=== PATIENT | male | born 2000 | race Caucasian/White ===

== ENCOUNTER 2021-11-02 15:54 | Emergency (ER) | payer OTHER ==
[~2021-11-02] VITALS: Ht 185.4 cm; Wt 104.3 kg
[2021-11-02 16:52] VITALS: BP 141/46
== END 2021-11-02 16:50 | disposition home or self-care (01) ==
LOC: M.ERS 15:54
DX: U07.1 COVID-19 (principal); Z88.1 Allergy status to other antibiotic agents